=== PATIENT | male | born 1960 | race Caucasian/White ===

== ENCOUNTER → 2020-05-03 | Outpatient (CLI) | payer BC ==
[~2020-05-03] MED LIST: OMNIPAQUE 350 MG/ML, 100ML BOTTLE ONE
== END | disposition home or self-care (01) ==
LOC: CFH 11:53
PROVIDERS: ATTEND Internal Medicine Cardiovascular Disease
DX: J84.10 Pulmonary fibrosis, unspecified (principal); I48.0 Paroxysmal atrial fibrillation
CPT/HCPCS: 71046; 75572; 82565; Q9967

== ENCOUNTER 2020-05-10 06:13 | Observation (INO) | payer BC ==
[~2020-05-10] VITALS: Ht 180.3 cm; Wt 105.4 kg
[2020-05-10] MEDS ORDERED: SODIUM CHLORIDE 0.9% 1,000 ML IV SCH (06:38)
[2020-05-10 07:10] VITALS: BP 141/79
[2020-05-10] MEDS ORDERED: METO-95 PO (07:17)
[2020-05-10 07:19] LABS: BASOPHILS # (AUTO) 0.02 x10^3/uL (0-0.1); BASOPHILS % (AUTO) 0 % (0-1); EOSINOPHILS # (AUTO) 0.12 x10^3/uL (0-0.4); EOSINOPHILS % (AUTO) 2 % (1-7); LYMPHOCYTES # (AUTO) 1.21 x10^3/uL (1-3.4); LYMPHOCYTES % (AUTO) 23 % (22-44); MD NO; MEAN CORPUSCULAR HEMOGLOBIN 32.3 pg (27.5-34.5); MEAN CORPUSCULAR HGB CONC 33.9 g/dL (33.2-36.2); MEAN PLATELET VOLUME 9.5 fL (7.4-10.4); MONOCYTES % (AUTO) 8 % (2-9); NEUTROPHILS # (AUTO) 3.49 x10^3/uL (1.8-6.8); NEUTROPHILS % (AUTO) 67 % (42-75); PLATELET COUNT 154 x10^3/uL (130-400); RED BLOOD COUNT 4.68 x10^6/uL (4.38-5.82); RED CELL DISTRIBUTION WIDTH 13.7 % (9.4-14.8)
[2020-05-10] MEDS ORDERED: FLEC150T PO ×2 (07:20→07:23)
[2020-05-10] MEDS ORDERED: RIVA20TA PO (07:21)
[2020-05-10] MEDS ORDERED: OMEP40CA42 PO (07:22)
[2020-05-10] MEDS ORDERED: LISI40TA PO (07:22)
[2020-05-10 07:28] LABS: ANION GAP 6 mmol/L (5-15); CALCIUM 8.4 mg/dL (8.5-10.1); CHLORIDE 111 mmol/L (98-107); CREATININE 0.88 mg/dL (0.7-1.3)
[2020-05-10 07:42] LABS: INTERNATIONAL NORMALIZED RATIO 0.99 (0.93-1.1); PROTHROMBIN TIME 10.2 Seconds (9.6-11.5)
[2020-05-10] MEDS ORDERED: LIDOCAINE-MPF 1%, 5ML ONE (07:48)
[2020-05-10] MEDS ORDERED: MIDAZOLAM 1 MG/ML, 2ML ONE (07:55)
[2020-05-10] MEDS ORDERED: FENTANYL PF 250 MCG/5ML ONE (07:56)
[2020-05-10] MEDS ORDERED: PHENYLEPHRINE 10 MG/ML ONE ×2 (08:14→09:24)
[2020-05-10] MEDS ORDERED: ONDANSETRON 2MG/ML, 2ML ONE ×2 (08:20→13:37)
[2020-05-10] MEDS ORDERED: DEXAMETHASONE 4 MG/ML, 1ML ONE (08:20)
[2020-05-10] MEDS ORDERED: SUCCINYLCHOLINE 20 MG/ML, 10ML ONE (08:20)
[2020-05-10] MEDS ORDERED: ROCURONIUM 10 MG/ML,10ML ONE ×2 (08:20→12:08)
[2020-05-10] MEDS ORDERED: PROPOFOL 10 MG/ML, 20ML ONE (08:20)
[2020-05-10] MEDS ORDERED: hydrALAzine 20 MG/ML, 1ML IV PRN (08:30)
[2020-05-10] MEDS ORDERED: ACETAMINOPHEN 325 MG TABLET PO PRN ×2 (08:30→19:00)
[2020-05-10] MEDS ORDERED: OXYcodone 5 MG/5 ML ORAL.SOL UDC PO PRN (08:30)
[2020-05-10] MEDS ORDERED: EPHEDRINE 50 MG/ML, 1ML IVPush PRN (08:30)
[2020-05-10] MEDS ORDERED: PROMETHAZINE 25 MG/ML, 1ML IVPush PRN (08:30)
[2020-05-10] MEDS ORDERED: LABETALOL 5MG/ML, 20ML IV PRN (08:30)
[2020-05-10] MEDS ORDERED: MEPERIDINE/PF 25MG/0.5ML IVPush PRN (08:30)
[2020-05-10] MEDS ORDERED: ONDANSETRON 2MG/ML, 2ML IVPush PRN ×2 (08:30→20:00)
[2020-05-10] MEDS ORDERED: HYDROmorphone 1 MG/ML, 1ML INJ IVPush PRN (08:30)
[2020-05-10] MEDS ORDERED: HEPARIN 1,000 UNITS/ML, 10ML ONE ×4 (08:47→12:08)
[2020-05-10] MEDS ORDERED: SUGAMMADEX 200 MG/2 ML IVPush ONE (08:49)
[2020-05-10] MEDS ORDERED: LIDOCAINE-MPF 2% ,5ML ONE (09:26)
[2020-05-10] MEDS ORDERED: RIVAROXABAN 20 MG TABLET ONE (11:13)
[2020-05-10] MEDS ORDERED: PROMETHAZINE 25 MG/ML, 1ML ONE (13:37)
[2020-05-10] MEDS ORDERED: FENTANYL PF 100 MCG/2ML ONE (13:46)
[2020-05-10] MEDS: FENTANYL PF 100 MCG/2ML IV PRN ×2 (13:50→13:56)
[2020-05-10] MEDS: RIVAROXABAN 20 MG TABLET PO SCH (15:30)
[2020-05-10] MEDS ORDERED: OXYcodone/APAP 5/325MG TABLET PO PRN (19:00)
[2020-05-10] MEDS ORDERED: morphine SULFATE 10 MG/ML, 1ML IVPush PRN (19:00)
[2020-05-10] MEDS ORDERED: SIMETHICONE 125 MG CHEW TAB PO PRN (20:00)
[2020-05-10] MEDS ORDERED: SIMETHICONE 80 MG CHEW TAB PO PRN (20:00)
[2020-05-10 20:04] VITALS: BP 124/80
[2020-05-10] MEDS: FLECAINIDE 50MG TABLET PO SCH (20:25)
[2020-05-10] MEDS ORDERED: APIXABAN 5 MG TABLET PO SCH (21:00)
[2020-05-10] MEDS: OMEPRAZOLE 20 MG CAPSULE.DR PO SCH (21:20)
[2020-05-11 00:05] VITALS: BP 125/81
[2020-05-11] MEDS ORDERED: LOPERAMIDE 2 MG CAPSULE PO PRN (06:00)
[2020-05-11 07:15] VITALS: BP 136/79
[2020-05-11] MEDS ORDERED: OMEPRAZOLE 20 MG CAPSULE.DR PO SCH (07:30)
[2020-05-11] MEDS ORDERED: METOPROLOL SUCCINATE 100 MG TAB.ER.24H PO SCH (09:00)
[2020-05-11] MEDS ORDERED: RIVAROXABAN 20 MG TABLET PO SCH (09:00)
[2020-05-11] MEDS ORDERED: LISINOPRIL 40 MG TABLET PO SCH (09:00)
[2020-05-11] MEDS: OMEPRAZOLE 20 MG CAPSULE.DR PO SCH (09:01)
[2020-05-11] MEDS: FLECAINIDE 50MG TABLET PO SCH (09:02)
[2020-05-11] MEDS ORDERED: ACET325T26 PO (11:51)
[2020-05-11] MEDS: RIVAROXABAN 20 MG TABLET PO SCH (12:43)
[2020-05-11 13:50] VITALS: BP 118/74
== END 2020-05-11 14:15 | disposition home or self-care (01) ==
LOC: CACL 06:13 → 5SO 14:54 → CACL 17:40 → DCLOUNGE 05-11 14:15
PROVIDERS: ADMIT Internal Medicine Clinical Cardiac Electrophysiology; ATTEND Internal Medicine Clinical Cardiac Electrophysiology
DX: I48.0 Paroxysmal atrial fibrillation (principal); Z20.828 Contact with and (suspected) exposure to other viral communicable diseases; I10 Essential (primary) hypertension; K21.9 Gastro-esophageal reflux disease without esophagitis; Z79.01 Long term (current) use of anticoagulants
CPT/HCPCS: 36415; 80048; 85025; 85347; 85610; 87635; 93005; 93308; 93312; 93321; 93325; 93613; 93655; 93656; 93657; 93662; 96374; C1730; C1732; C1759; C1766; C1893; C1894; G0378; J0330; J1100; J1644; J2250; J2370; J2405; J2550; J2704; J3010; J3490; 96372